=== PATIENT | male | born 1960 | race Caucasian/White ===

== ENCOUNTER → 2017-05-10 | Outpatient (CLI) | payer OTHER ==
[~2017-05-10] MED LIST: IOHEXOL 300 MG/ML 75 ML VIAL. IV ONE
--- NOTE | 2017-05-10 12:27 | RAD ---
EXAM: Abdomen 2 views. HISTORY: Right lower quadrant pain. COMPARISON: None. FINDINGS: Supine and upright views of the abdomen are obtained. There is no pneumoperitoneum. There are no distended small bowel loops or significant air fluid levels. There is gas distally. Stool in the right colon suggests constipation. There is a mild lumbar levoscoliosis with moderate degenerative disc disease. IMPRESSION: 1. No evidence of obstruction. Correlate for constipation.
--- NOTE | 2017-05-10 14:09 | RAD ---
EXAM: CT abdomen/pelvis with contrast. HISTORY: Right lower quadrant pain. TECHNIQUE: Computed tomography of the abdomen and pelvis was performed after the intravenous administration of 75 mL Omnipaque 300. COMPARISON: None. FINDINGS: Lung windows through the visualized portions of the bases reveal mild atelectasis. Bone windows reveal no suspicious lesions. A 2 mm calculus in the right distal ureter is 2 cm from the ureterovesical junction. There is delayed perfusion of the right kidney in comparison with left, consistent with a component of obstruction. There is no significant hydronephrosis. Another 2-3 mm calculus is seen in the right interpolar region. There are no calculi on the left. The appendix is not inflamed. There is no obstruction. There are no pathologically enlarged lymph nodes. The liver, gallbladder, pancreas, spleen and adrenal glands are unremarkable. IMPRESSION: 1. 2 mm right distal ureteral calculus with evidence of acute obstruction. No significant hydronephrosis. 2. 2 mm right interpolar region calculus. *One or more of the following individualized dose reduction techniques were utilized for this examination: 1. Automated exposure control. 2. Adjustment of the mA and/or kV according to patient size. 3. Use of iterative reconstruction technique.
== END | disposition home or self-care (01) ==
LOC: DXRADRC 10:20
PROVIDERS: ATTEND Family Medicine
DX: N20.1 Calculus of ureter (principal)
CPT/HCPCS: 74020; 74177

== ENCOUNTER → 2017-05-10 | Outpatient (CLI) | payer OTHER ==
[~2017-05-10] MED LIST changes: +IOHEXOL 240 MG/ML 50ML VIAL. ONE; -IOHEXOL 300 MG/ML 75 ML VIAL. IV ONE
== END | disposition home or self-care (01) ==
LOC: CT 11:46
PROVIDERS: ATTEND Family Medicine
DX: R10.31 Right lower quadrant pain (principal)
CPT/HCPCS: 74177; Q9966